=== PATIENT | male | born 1970 | race Caucasian/White ===

== ENCOUNTER 2018-03-23 15:38 | Observation (INO) ==
--- NOTE | 2018-03-23 16:14 | EKG Report ---
Test Performed on : 03/23/2018 3:48:55 PM Test Reason : chest pain Blood Pressure : / mmHG Vent. Rate : 100 BPM Atrial Rate : 100 BPM P-R Int : 132 ms QRS Dur : 086 ms QT Int : 314 ms P-R-T Axes : 075 084 244 degrees QTc Int : 405 ms Normal sinus rhythm. Anteroseptal infarct (cited on or before 03-JUL-2016) T wave abnormality, consider inferolateral ischemia Abnormal ECG When compared with ECG of 23-MAR-2018 15:41, (Unconfirmed) No significant change was found Unconfirmed Result
--- NOTE | 2018-03-23 16:14 | EKG Report ---
Test Performed on : 03/23/2018 3:39:14 PM Test Reason : cp Blood Pressure : / mmHG Vent. Rate : 091 BPM Atrial Rate : 091 BPM P-R Int : 126 ms QRS Dur : 094 ms QT Int : 330 ms P-R-T Axes : 074 084 248 degrees QTc Int : 405 ms Normal sinus rhythm. Anteroseptal infarct (cited on or before 03-JUL-2016) T wave abnormality, consider inferolateral ischemia ACUTE NC / STEMI Abnormal ECG When compared with ECG of 03-MAR-2018 12:30, (Unconfirmed) Right bundle branch block is no longer present Unconfirmed Result
--- NOTE | 2018-03-23 16:17 | Diag Imaging Result Doc PS360 ---
EXAM: CT HEAD W/O CONTRAST - 03/23/2018 HISTORY: left arm tingling TECHNIQUE: CT head without contrast COMPARISON: 12/29/2017 FINDINGS: There is encephalomalacia consistent with old infarct at the bilateral posterior parieto-occipital regions, as well as the right posterior temporal region, similar to prior. There is no indication of recent infarct, although acute infarcts may not be immediately visible. There is no evidence of intracranial hemorrhage, mass effect, or midline shift. There is no evidence of skull fracture. IMPRESSION: Old infarcts at bilateral posterior parietal-occipital regions, and at right posterior temporal region, similar to prior. No visible acute intracranial abnormality. This exam was performed using automated exposure control, adjustment of mA or kV according to patient size, and/or use of iterative reconstruction technique. Electronically signed by Festus Amador 03/23/2018 4:15 PM
[2018-03-23 16:20] LABS: BASO# 0.03 X1000 (0.0-0.2); BASO% 0.6 % (0.0-0.8); EOS% 1.9 % (0.0-10.0); HEMATOCRIT 45.2 % (42.0-52.0); HEMOGLOBIN 15.3 g/dL (14.0-18.0); IMM GRAN# 0.01 X1000 (0.0-0.04); IMM GRAN% 0.2 % (0.0-0.5); LYMPH# 1.06 X1000 (1.2-3.4); MCH 32.7 PG (27-31); MCHC 33.8 g/dL (33-37); MCV 96.6 FL (81-99); MONO# 0.43 X1000 (0.11-0.59); MONO% 8.1 % (1.7-9.3); MPV 10.1 FL (7.4-10.4); NEUT# 3.66 X1000 (1.4-6.5); NEUT% 69.2 % (42.2-75.2); PLT 233 X1000 (130-400); RBC 4.68 XMIL (4.7-6.1); RDW 13.5 % (11.5-14.5); WBC 5.29 X1000 (4.8-10.8)
[2018-03-23 16:22] LABS: INR 1.03
[2018-03-23 16:23] LABS: PTT 27.5 Seconds (22.3-41.8)
[2018-03-23 16:36] LABS: AGAP 10; ALBUMIN 4.5 g/dL (3.5-5.0); ALKALINE PHOSPHATASE 64 U/L (32-122); BUN 3 mg/dL (8-22); CALCIUM 9.8 mg/dL (8.8-10.2); CHLORIDE 103 mmol/L (98-107); CK PROFILE 79 U/L (24-204); COSMO 280; CREATININE 0.7 mg/dL (0.7-1.2); ESTIMATED GFR > 60; GLUCOSE 102 mg/dL (70-104); GOT 12 U/L (10-34); GPT 6 U/L (10-44); POTASSIUM 4.7 mmol/L (3.5-5.1); SODIUM 142 mmol/L (136-145); TCO2 30 mmol/L (25-35); TOTAL BILIRUBIN < 0.15 mg/dL (0.20-1.00); TOTAL PROTEIN 6.7 g/dL (6.3-8.3)
--- NOTE | 2018-03-23 17:02 | PROVIDER DOCUMENTATION ---
This chart was entered by Maria Cole Scribe, acting as scribe for Marian Urbano MD. HPI-Neurological Disorder - General Chief Complaint: Numbness Stated Complaint: NUMBNESS L ARM Time Seen by Provider: 03/23/18 15:48 Source: patient Allergies/Adverse Reactions: Patient Allergies Allergy/AdvReac Type Severity Reaction Status Date / Time No Known Allergies Allergy Verified 11/01/17 13:02 - History of Present Illness-Neuro Nature of Presenting Problem: Patient is a 48 year old male who presents to the ED via EMS with left arm numbness. Patient states numbness started this morning at 0400. Patient denies shortness of breath and chest pain. Patient does not report headache. Headache Location: reports: other (no headache reported) Severity: reports: mild Onset/Duration: reports: this morning (0400) Timing: reports: still present Context: reports: other (numbness) Character of Altered Mental Status: reports: N/A Any recent trauma/injury?: reports: none Character of Deficits: reports: altered sensation (numbness) New weakness or altered sensation location:: reports: LUE Cognitive Baseline: alert, oriented x3 Associated Symptoms: reports: denies symptoms Similar Symptoms Previously?: No Recently seen or treated by another doctor?: No Review of Systems - Adult - REVIEW OF SYSTEMS - ADULT Constitutional: reports: no symptoms reported Eyes: reports: no symptoms reported Ears, Nose, Mouth & Throat: reports: no symptoms reported Cardiovascular: reports: no symptoms reported Respiratory: reports: no symptoms reported Gastrointestinal: reports: no symptoms reported Genitourinary: reports: no symptoms reported Musculoskeletal: reports: no symptoms reported Integumentary: reports: no symptoms reported Neurological: reports: numbness (LUE). denies: dizziness/vertigo, headache/ migraines, seizure, syncope Psychiatric: reports: no symptoms reported Endocrine: reports: no symptoms reported Hematologic/Lymphatic: reports: no symptoms reported Allergic/Immunologic: reports: no symptoms reported All Other Systems: Reviewed and Negative Past History - Adult - PAST MEDICAL HISTORY-ADULT Review of Records: reports: Nursing Assessment Review, Medications Reviewed, Social history reviewed & non-contributory. Major Childhood Illnesses: reports: denies history Cardiovascular: reports: blood clots (knee), CAD, HTN, hyperlipidemia, CT Respiratory: reports: COPD Gastrointestinal: reports: denies history Obstetrical/Gynecological: reports: denies history Genitourinary: reports: denies history Musculoskeletal: reports: denies history Neurological: reports: CVA, stroke deficits (speech and vision), Seizures/ Epilepsy Endocrine/Immune: reports: denies history Other Conditions: reports: denies history, other (DVT) - PRIOR SURGERIES/PROCEDURES Surgical/Procedure History: reports: cardiac stent, orthopedic (extremity) (R knee, L foot), other (stents in knee) - IMMUNIZATION STATUS Childhood Immunizations: See Nurse Assessment Flu Vaccine: See Nurse Assessment - FAMILY HISTORY Family History: reviewed, not pertinent - SOCIAL HISTORY Smoking: cigarettes, greater than 1 pack/day Provider spent 3-5 mins advising pt. on dangers of tobacco.: Discussed manners to quit use, and f/u contacts for add'l counseling. 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2 MCV 96.6 MCH 32.7 H MCHC 33.8 RDW Std Deviation 13.5 Plt Count 233 MPV 10.1 Immature Gran % (Auto) 0.2 Neut % (Auto) 69.2 Lymph % (Auto) 20.0 L [place] % (Auto) 8.1 Eos % (Auto) 1.9 Baso % (Auto) 0.6 Immature Gran # (Auto) 0.01 Neut # (Auto) 3.66 Lymph # (Auto) 1.06 L [place] # (Auto) 0.43 Eos # (Auto) 0.10 Baso # (Auto) 0.03 PT INR PTT (Actin FS) Sodium 142 Potassium 4.7 Chloride 103 Carbon Dioxide 30 Anion Gap 10 BUN 3 L Creatinine 0.7 Estimated GFR/1.73 m2 > 60 BUN/Creatinine Ratio 4 Glucose 102 Calculated Osmolality 280 Calcium 9.8 Total Bilirubin < 0.15 L AST 12 ALT 6 L Alkaline Phosphatase 64 Creatine Kinase 79 Troponin T Wxl-R-Omhlezjxavc Pept 265 H Total Protein 6.7 Albumin 4.5 Globulin 2.0 Albumin/Globulin Ratio 2.0 03/23/18 03/23/18 15:56 15:56 WBC RBC Hgb Hct MCV MCH MCHC RDW Std Deviation Plt Count MPV Immature Gran % (Auto) Neut % (Auto) Lymph % (Auto) [place] % (Auto) Eos % (Auto) Baso % (Auto) Immature Gran # (Auto) Neut # (Auto) Lymph # (Auto) [place] # (Auto) Eos # (Auto) Baso # (Auto) PT 14.0 INR 1.03 PTT (Actin FS) 27.5 Sodium Potassium Chloride Carbon Dioxide Anion Gap BUN Creatinine Estimated GFR/1.73 m2 BUN/Creatinine Ratio Glucose Calculated Osmolality Calcium Total Bilirubin AST ALT Alkaline Phosphatase Creatine Kinase Troponin T < 0.010 [place]-G-Jglczaqazct Pept Total Protein Albumin Globulin Albumin/Globulin Ratio Orders Category Date Time Status Cardiac Monitoring DIRECTED Care 03/23/18 16:04 Active Saline Loc NOW Care 03/23/18 16:[address] HEAD W/O CONTRAST [CT] Stat Exams 03/23/18 15:48 Completed ALCOHOL BLOOD Stat Lab 03/23/18 17:25 Uncollected CBC WITH ELECTRONIC DIFF [HEME] Stat Lab 03/23/18 15:56 Completed CK PROFILE [SP CHEM] Stat Lab 03/23/18 15:56 Completed COMPREHENSIVE METABOLIC PANEL [CHEM] Stat Lab 03/23/18 15:56 Completed PRO B-NATRIURETIC PEPTIDE Stat Lab 03/23/18 15:56 Completed PROTIME WITH INR [COAG] Stat Lab 03/23/18 15:56 Completed PTT [COAG] Stat Lab 03/23/18 15:56 Completed TROPONIN T Stat Lab 03/23/18 15:56 Completed Hydrocodone/APAP 5 mg/325 mg [[place]-5] Med 03/23/18 17:13 Discontinued 1 each PO NOW ONE CP/SOB/Palp >45 yrs of Age Stat Oth 03/23/18 16:04 Ordered EKG [EKG] Stat Ther 03/23/18 16:04 Draft EKG [EKG] Stat Ther 03/23/18 16:05 Draft Result Diagrams: 03/23/18 15:56 03/23/18 15:56 - EKG 1 Time of EKG reading by physician:: 15:39 EKG Read and Signed by:: Marian Urbano EKG Interpretation (*Must complete 3 of following elements*): Abnormal (T wave abnormality, consider inferolateral ischemia; ACUTE CT / STEMI) Rate: 91 Rhythm: normal sinus rhythm Comments: anteroseptal infarct, possibly acute; 2 Time of EKG reading by physician:: 15:41 EKG Read and Signed by:: Marian Urbano EKG Interpretation (*Must complete 3 of following elements*): Abnormal (ST & T wave abnormality, consider inferolateral ischemia) Rate: 88 Rhythm: normal sinus rhythm Comments: anterolateral infarct, age undetermined; - CT/MRI 1 CT Study: Head Impression: See EMR Report (EXAM: CT HEAD W/O CONTRAST - 03/23/2018 HISTORY: left arm tingling TECHNIQUE: CT head without contrast COMPARISON: 2017 FINDINGS: There is encephalomalacia consistent with old infarct at the bilateral posterior parieto-occipital regions, as well as the right posterior temporal region, similar to prior. There is no indication of recent infarct, although acute infarcts may not be immediately visible. There is no evidence of intracranial hemorrhage, mass effect, or midline shift. There is no evidence of skull fracture. IMPRESSION: Old infarcts at bilateral posterior parietal- occipital regions, and at right posterior temporal region, similar to prior. No visible acute intracranial abnormality. This exam was performed using automated exposure control, adjustment of mA or kV according to patient size, and/or use of iterative reconstruction technique. Electronically signed by Festus Amador 03/23/2018 4:15 PM 03/23/18 0188 Interpreting Physician: Festus Amador MD Dictated Date/Time: 03/23/18 4547 cc: Marian Urbano MD;) - CONSULTS/PCP/HOSPITALIST Notification #1 *Consult/PCP/Hospitalist*: Dr. Reyes Time Discussed: 16:03 Reason/Comments: Dr. Urbano consulted with Dr. Reyes about patient. Consult Disposition: other (Dr. Reyes states put the EKG in the system so he can view it.) #2 Consult: Dr. Reyes Time Discussed: 16:20 Reason/Comments: Dr. Urbano consulted with Dr. Reyes about patient. Consult Disposition: other (Dr. Reyes states today's EKG looks like patient's EKG in November.) #3 Consult: Dr. Hernandez Time Discussed: 17:28 Reason/Comments: Dr. Urbano consulted with Dr. Hernandez about patient Consult Disposition: Will see in ED, Admit Departure - Departure Date of Disposition Decision: 03/23/18 Time of Disposition Decision: 17:28 DIAGNOSIS: Acute electrocardiogram changes, Arm paresthesia, left Disposition: ADMITTED INPATIENT 09 Certified Medical Emergency: Emergent Condition: Fair - Critical Care Note This patient required my direct & personal management of CC.: No Attestation - Physician/ REI Attestation The physician spent face to face time with patient:: Yes Advanced Practice Provider documentation review:: Supervising physician onsite and consulted in the evaluation and care of this patient. The physician did have a face to face encounter with the patient. This chart was documented by the indicated scribe, (Maria Cole Scribe) and accurately reflects the services I performed and decisions made by me, Marian Urbano MD, as attested by the provider's signature.
[2018-03-23] MEDS ORDERED: NORCO-5 PO ONE (17:13)
[2018-03-23] MEDS ORDERED: ZOFRAN IV PRN (18:32)
[2018-03-23] MEDS ORDERED: TYLENOL PO PRN (18:32)
[2018-03-23] MEDS: NICODERM PATCH TD PRN (19:48)
--- NOTE | 2018-03-24 00:57 | HISTORY AND PHYSICAL ---
CHIEF COMPLAINT: Left arm numbness. HISTORY OF PRESENT ILLNESS: This is a 48-year-old gentleman with a history of CVA, with residual left-sided weakness and numbness, hypertension, COPD, with ongoing tobacco use. He presents to the emergency room complaining of left arm numbness that he states started about 3 a.m. He denies any shortness of breath, chest pain, palpitations, headache, or any other accompanying symptoms. He states that the numbness is just "a little bit worse than normal." He has good PMS to hand and fingers. CT of the head was performed, which revealed old infarcts in bilateral posterior parietal occipital regions, and right posterior temporal region, similar to prior. No additional acute intracranial abnormality. PAST MEDICAL HISTORY: Hypertension, dyslipidemia, history of blood clots, CAD, status post ID, COPD with continued tobacco use, history of seizures. PAST SURGICAL HISTORY: Right knee and left foot surgery, stents to bilateral lower extremities, although he is unclear to positions. SOCIAL HISTORY: He smokes 1-1/2 to 2 packs a day. He denies illicit drug use. He states that he does have a history of alcohol use. ALLERGIES: No known drug allergies. HOME MEDICATIONS: A list will be obtained by the nursing staff and once verified, we will review and continue as appropriate. REVIEW OF SYSTEMS: Discussed with the patient, with pertinent positives stated in the HPI. He denies any headache, any syncope, dizziness, any shortness of breath, cough, fever, chills, chest pain, palpitations, any nausea, vomiting, diarrhea, constipation, black or bloody vomitus or stools, hematuria, dysuria, frequency, or urgency. PHYSICAL EXAMINATION: GENERAL: This is a 48-year-old gentleman who is sitting up on the bedside in the ER, in no distress. VITAL SIGNS: Blood pressure is 174/99, with heart rate of 100, respirations of 20. Temperature is 98.2, with oxygen saturation 96-99% on room air. HEENT: Head is normocephalic, atraumatic. Mucous membranes are moist. NECK: Supple. Trachea midline. CARDIOVASCULAR: Regular rate and rhythm. S1, S2 appreciated. PULMONARY: Breath sounds are clear. CHEST: Rises and falls symmetrically with respiration. Chest wall is nontender to palpation. GASTROINTESTINAL: Soft, nontender, nondistended, with bowel sounds in all 4 quadrants. NEUROLOGIC: He is alert and oriented. He does have slurred speech, which he is residual from a prior CVA. He does follow commands. He has 5/5 motor strength to the right upper and lower, and 3/5 to 4/5 in the left upper and lower extremities. He has no pronator drift, no facial droop. Forehead is spared. He has no tongue or uvula deviation. LABS: WBC is 5.2, with hemoglobin 15.3, hematocrit 35.2, and platelets 237,000. Sodium is 142, potassium 4.7, BUN 3, creatinine 0.7, with a glucose of 102. CT of the head reveals old infarcts in bilateral posterior parietal occipital regions, and right posterior temporal region, similar to prior. No visible acute intracranial abnormality. ASSESSMENT: 1. Left arm numbness. 2. Hypertension. 3. Chronic obstructive pulmonary disease. 4. Coronary artery disease, status post stents. 5. Peripheral vascular disease, status post lower extremity stents. 6. Prior cerebrovascular accident, with left-sided weakness and slurred speech. PLAN: The patient will be admitted to the medical/surgical floor. He will be placed on telemetry, with neuro checks every 4 hours. We will identify his home medications, and will continue these as are appropriate. We will repeat a CBC and CMP in the morning. We will check a blood alcohol, give a nicotine patch. Further treatments pending hospital course. Dictated by GREGG Shelton for Sam Santos MD This chart was documented by, GREGG Shelton and accurately reflects the services performed, treatment plan and medical decisions as attested by the providers signature Sam Santos MD. cc: GREGG Shelton MD
--- NOTE | 2018-03-24 06:29 | EKG Report ---
Test Performed on : 03/24/2018 06:17:56 AM Test Reason : pain Blood Pressure : / mmHG Vent. Rate : 084 BPM Atrial Rate : 084 BPM P-R Int : 134 ms QRS Dur : 084 ms QT Int : 354 ms P-R-T Axes : 074 088 243 degrees QTc Int : 418 ms Normal sinus rhythm. Anterolateral infarct (cited on or before 03-JUL-2016) T wave abnormality, consider inferior ischemia Abnormal ECG When compared with ECG of 23-MAR-2018 15:48, (Unconfirmed) Questionable change in initial forces of Lateral leads Unconfirmed Result
[2018-03-24 06:59] LABS: HEMATOCRIT 44.7 % (42.0-52.0); HEMOGLOBIN 14.9 g/dL (14.0-18.0); MCH 31.9 PG (27-31); MCHC 33.3 g/dL (33-37); MCV 95.7 FL (81-99); MPV 9.9 FL (7.4-10.4); RBC 4.67 XMIL (4.7-6.1); RDW 13.6 % (11.5-14.5)
[2018-03-24] MEDS ORDERED: PRILOSEC PO SCH (07:00)
[2018-03-24 07:29] LABS: AGAP 9; ALBUMIN 3.6 g/dL (3.5-5.0); ALKALINE PHOSPHATASE 60 U/L (32-122); BUN 9 mg/dL (8-22); CALCIUM 9.5 mg/dL (8.8-10.2); CHLORIDE 105 mmol/L (98-107); COSMO 282; CREATININE 0.6 mg/dL (0.7-1.2); ESTIMATED GFR > 60; GLUCOSE 96 mg/dL (70-104); GOT 12 U/L (10-34); GPT 5 U/L (10-44); SODIUM 142 mmol/L (136-145); TCO2 28 mmol/L (25-35); TOTAL PROTEIN 6.3 g/dL (6.3-8.3)
[2018-03-24] MEDS: NICODERM PATCH TD PRN (10:17)
[2018-03-24 14:00] VITALS: BP 159/81
--- NOTE | 2018-03-24 15:16 | Diag Imaging Result Doc PS360 ---
EXAM: MRI BRAIN W/WO CONTRAST HISTORY: stroke suspected TECHNIQUE: MRI brain with and without contrast. Axial, sagittal, and coronal images obtained in multiple sequences. These are followed the post contrasted axial and coronal images. COMPARISON: CT from 03/23/2018 FINDINGS: No recent infarct. There are multiple old cerebellar and occipital infarcts no hydrocephalus. No mass or midline shift. No enhancing lesion on the post contrasted images. No epidural or subdural fluid collection. Normal orbits. No sinus opacification. IMPRESSION: Old occipital and cerebellar infarcts, but no acute infarct. Electronically signed by Pb Dove 03/24/2018 3:14 PM
--- NOTE | 2018-03-25 08:41 | DISCHARGE SUMMARY ---
ADMISSION DATE: 03/23/2018 DISCHARGE DATE: 03/24/2018 DIAGNOSES: 1. Left arm numbness. The patient states it is back to his normal state. 2. Hypertension. 3. Chronic obstructive pulmonary disease. 4. Coronary artery disease status post stent. 5. Peripheral vascular disease, status post lower extremity stents. 6. Prior cerebrovascular accident with left-sided weakness and slurred speech. DIAGNOSTICS: CT of the head revealed old infarcts at bilateral posterior parietal-occipital regions and a right posterior temporal region similar to prior. No visible acute abnormality. MRI of the brain with and without contrast revealed old occipital and cerebellar infarcts, but no acute infarct. HOSPITAL COURSE: Mr. Cardoza presented to the emergency room via EMS complaining of numbness to his left arm. He stated, "it's just a little bit worse than normal." He has had a prior CVA with left-sided weakness to his left arm and left leg with also some decreased sensation to his left arm. CT revealed old infarcts, but nothing acute. Today, he states he is back to his normal state. He has no complaints. MRI was performed, which revealed old occipital and cerebellar infarcts, but no acute infarct. Thankfully, he is ready to be discharged, and the patient is very anxious to be discharged. PHYSICAL EXAMINATION: Discharge vital signs: Blood pressure is 159/81 with a heart rate of 74, respirations 18, temperature is 98.7 degrees oral, with room air saturations of 95%. Eyes: Pupils are equal, round, react to light. EOMs are intact. Sclerae are anicteric. HENT: Head is normocephalic, atraumatic. Mucous membranes are moist. Neck: Supple with trachea midline. Cardiovascular: Regular rate and rhythm. S1 and S2 appreciated. Pulmonary: Breath sounds are clear with no increased work of breathing noted. Neurologic: He is alert and oriented x3. He does have some left-sided weakness with 3 to 4/5 strength in the left upper and lower extremities and 5/5 to the right. He has no pronator drift. No facial droop. Forehead is spared. No tongue or uvula deviation. DISCHARGE MEDICATIONS: Trazodone 150 mg p.o. at bedtime, gabapentin 300 mg p.o. t.i.d., levetiracetam 500 mg p.o. b.i.d., and lorazepam 0.5 p.o. daily. The patient was given no prescriptions at this visit. FOLLOWUP: 1. He has been encouraged to follow up with his primary care physician in the next 1-2 weeks, sooner if needed. 2. He has been given a list of providers that he can select a PMD and make an appointment. 3. He has been instructed to return to the ER for any syncope, dizziness, any chest pain, palpitations, any change in sensation or motor function of any of the 4 extremities or for any questions or concerns that he may have. He is being discharged home in stable condition with family members. TIME SPENT: This is a greater than 30-minute discharge. Dictated by GREGG Shelton for Sam Santos MD This chart was documented by, GREGG Shelton and accurately reflects the services performed, treatment plan and medical decisions as attested by the providers signature Sam Santos MD. cc: GREGG Shelton MD
== END 2018-03-24 18:09 | disposition home or self-care (01) ==
LOC: P.MEDSURG 15:38 → P.ED 15:38
PROVIDERS: ATTEND Internal Medicine
CPT/HCPCS: 70450; 70553; 80053; 80307; 80320; 82055; 82550; 83880; 84484; 85025; 85027; 85610; 85730; 93005; 99285; A9270; A9579; G0480; G6040

== ENCOUNTER 2018-10-18 14:52 | Inpatient (IN) ==
[2018-10-18] MEDS ORDERED: ASPIRIN PO ONE (14:57)
[2018-10-18] MEDS ORDERED: MORPHINE IV ONE (15:08)
[2018-10-18] MEDS ORDERED: ZOFRAN IV ONE (15:09)
[2018-10-18] MEDS ORDERED: SOLU-MEDROL IV ONE (15:09)
[2018-10-18] MEDS ORDERED: PULMICORT INH ONE (15:10)
[2018-10-18] MEDS ORDERED: DUONEB (A & A) INH ONE (15:11)
--- NOTE | 2018-10-18 15:47 | PROVIDER DOCUMENTATION ---
HPI-Respiratory General - General Chief Complaint: Shortness of Breath Stated Complaint: SOB Time Seen by Provider: 10/18/18 15:05 Allergies/Adverse Reactions: Patient Allergies Allergy/AdvReac Type Severity Reaction Status Date / Time No Known Allergies Allergy Verified 04/06/18 15:00 Home Medications: Home Medication List Medication Instructions Recorded Confirmed Last Taken Type ENALApril [Vasotec] 5 mg PO DAILY #30 tab 06/22/18 10/18/18 Unknown Rx Gabapentin [Neurontin] 100 mg PO TID #90 cap 06/22/18 10/18/18 Unknown Rx - History of Present Illness-Resp Nature of Presenting Problem: patient with history of COPD presented with worsening shortness of breath, patient was still smoking. appeared with laboring breathing. no fever was reported. patient denied fever. Quality of Pain: reports: tightness Severity in ED: reports: moderate Onset/Duration: reports: gradual Timing: reports: still present Cough Quality/Degree: reports: moderate Current Respiratory Medication Therapy: Initiated A/A nebulizer, Initiated albuterol Modifying Factors: improves with: exertion, coughing Associated Symptoms: reports: cough, hyperventilating, short of breath, wheezing Similar Symptoms Previously?: Yes Review of Systems - Adult - REVIEW OF SYSTEMS - ADULT Constitutional: denies: fever, fatique Eyes: reports: no symptoms reported Ears, Nose, Mouth & Throat: reports: no symptoms reported Cardiovascular: reports: no symptoms reported Respiratory: reports: cough, shortness of breath, wheezing Gastrointestinal: reports: no symptoms reported Genitourinary: reports: no symptoms reported Musculoskeletal: reports: no symptoms reported Integumentary: reports: no symptoms reported Neurological: reports: no symptoms reported Psychiatric: reports: no symptoms reported Endocrine: reports: no symptoms reported Hematologic/Lymphatic: reports: no symptoms reported Allergic/Immunologic: reports: no symptoms reported Past History - Adult - PAST MEDICAL HISTORY-ADULT Review of Records: reports: Nursing Assessment Review Major Childhood Illnesses: reports: denies history Cardiovascular: reports: blood clots (knee), CAD, HTN, hyperlipidemia, [place] Respiratory: reports: COPD Gastrointestinal: reports: denies history Obstetrical/Gynecological: reports: denies history Genitourinary: reports: denies history Musculoskeletal: reports: denies history Neurological: reports: CVA, stroke deficits (speech and vision), Seizures/Epilepsy Endocrine/Immune: reports: denies history Other Conditions: reports: denies history, other (DVT) - PRIOR SURGERIES/PROCEDURES Surgical/Procedure History: reports: cardiac stent, orthopedic (extremity) (R knee, L foot), other (stents in knee) - IMMUNIZATION STATUS Childhood Immunizations: See Nurse Assessment Flu Vaccine: See Nurse Assessment - FAMILY HISTORY Family History: reviewed, not pertinent Physical Exam-General - PHYSICAL EXAM-ADULT Initial Vital Signs Reviewed: Yes - CONSTITUTIONAL General Appearance: alert, moderate distress - EYES Eyes: PERRL/EOMI - HEAD, EARS, NOSE, MOUTH & THROAT HENMT: normocephalic/atraumatic - NECK Neck: non-tender, supple - RESPIRATORY Respiratory: respiratory distress, wheezing, increased rate - CARDIOVASCULAR Cardiovascular: no edema, no gallop, no murmur, tachycardia - GASTROINTESTINAL (ABDOMEN) Abdominal Exam: non tender, soft, no organomegaly, no pulsatile mass - MUSCULOSKELETAL Back Exam: normal inspection, no CVA tenderness, no vertebral tenderness Extremity: normal range of motion, non-tender, normal gait, normal inspection, no pedal edema, no calf tenderness - SKIN Integumentary: normal turgor, warm/dry - NEUROLOGIC Neurologic: grocery specialist II-XII nml as tested, grossly normal, no motor/sensory deficits - PSYCHIATRIC Psych/Mental Status: normal mood/affect - HEART Score HEART Score: History: Slightly Suspicious HEART Score: ECG: Non-Specific Repolarization Disturbance/LBBB/PM HEART Score: Age: 45-65 Years HEART Score: Risk Factors for Atherosclerotic Disease: 1 or 2 Risk Factors HEART Score: Troponin: < or = Normal Limit Total HEART Score:: 3 Progress - PLAN OF CARE/RESULTS Progress/Plan/Lab Results: Vital Signs - 8 hr 10/18/18 14:47 10/18/18 14:55 Temperature 98.8 F Pulse Rate 108 H 102 H Respiratory Rate 24 22 Blood Pressure 179/105 O2 Sat by Pulse Oximetry 96 95 Laboratory Results - last 24 hr 10/18/18 10/18/18 10/18/18 16:10 16:10 16:10 WBC 7.30 RBC 4.31 L Hgb 12.1 L Hct 37.1 L MCV 86.1 MCH 28.1 MCHC 32.6 L RDW Std Deviation 14.5 Plt Count 285 MPV 9.6 Immature Gran % (Auto) 0.1 Neut % (Auto) 74.8 Lymph % (Auto) 12.3 L [place] % (Auto) 11.2 H Eos % (Auto) 1.1 Baso % (Auto) 0.5 Immature Gran # (Auto) 0.01 Neut # (Auto) 5.45 Lymph # (Auto) 0.90 L [place] # (Auto) 0.82 H Eos # (Auto) 0.08 Baso # (Auto) 0.04 PT INR PTT (Actin FS) Specimen Type Sample Site pH pCO2 pO2 HCO3 Base Excess Oxyhemoglobin ABG O2 Sat (Calculated) ABG O2 Saturation ABG Carboxyhemoglobin ABG Methemoglobin Ed Test A-a O2 Difference Total Hemoglobin Lactate Liter Flow Blood Gas Modality FiO2 % Sodium 135 L Potassium 3.9 Chloride 95 L Carbon Dioxide 31 Anion Gap 8 BUN 3 L Creatinine 0.5 L Estimated GFR/1.73 m2 > 60 BUN/Creatinine Ratio 6 Glucose 108 H Calculated Osmolality 267 Calcium 8.7 L Total Bilirubin 0.20 AST 19 ALT 12 Alkaline Phosphatase 77 Creatine Kinase 313 H Creatine Kinase Index 2.8 H CK-MB (CK-2) 8.61 H Troponin T [id number]-Bnyuwgbboye Pept 1391 H Total Protein 6.0 L Albumin 3.9 Globulin 2.0 Albumin/Globulin Ratio 2.0 10/18/18 10/18/18 10/18/18 16:10 16:10 17:20 WBC RBC Hgb Hct MCV MCH MCHC RDW Std Deviation Plt Count MPV Immature Gran % (Auto) Neut % (Auto) Lymph % (Auto) [place] % (Auto) Eos % (Auto) Baso % (Auto) Immature Gran # (Auto) Neut # (Auto) Lymph # (Auto) [place] # (Auto) Eos # (Auto) Baso # (Auto) PT 14.4 INR 1.07 PTT (Actin FS) 28.5 Specimen Type ARTERIAL Sample Site R RADIAL pH 7.34 L pCO2 60 H* pO2 47 L* HCO3 28.4 H Base Excess 5.0 H Oxyhemoglobin 78.7 L* ABG O2 Sat (Calculated) 14.1 L ABG O2 Saturation 87.6 L ABG Carboxyhemoglobin 9.70 H* ABG Methemoglobin 0.4 Ed Test YES A-a O2 Difference 78.0 Total Hemoglobin 12.8 Lactate 0.80 Liter Flow 2.0 Blood Gas Modality CANNULA FiO2 % 28.0 Sodium Potassium Chloride Carbon Dioxide Anion Gap BUN Creatinine Estimated GFR/1.73 m2 BUN/Creatinine Ratio Glucose Calculated Osmolality Calcium Total Bilirubin AST ALT Alkaline Phosphatase Creatine Kinase Creatine Kinase Index CK-MB (CK-2) Troponin T < 0.010 Ddr-R-Rnncvrjshia Pept Total Protein Albumin Globulin Albumin/Globulin Ratio Orders Category Date Time Status Admit - [facility] Routine AdmDCTranf 10/18/18 17:56 Active Activity - Up with Assistance ORDERED Care 10/18/18 17:56 Active Cardiac Monitoring DIRECTED Care 10/18/18 14:57 Active DVT/PE Risk Assess/Protocol [QM] ORDERED Care 10/18/18 17:56 Active Intake and Output-Strict ORDERED Care 10/18/18 17:56 Active Oxygen Therapy- ED Nursing DIRECTED Care 10/18/18 14:57 Active Saline Loc DIRECTED Care 10/18/18 17:56 Active Saline Loc NOW Care 10/18/18 14:57 Active Turn, Cough and Deep Breathe Q4HR.AWAKE Care 10/18/18 17:56 Active Vital Signs Order Q 8-HR ASSESS Care 10/18/18 17:56 Active Z-Document. for Tele Applied ORDERED Care 10/18/18 17:57 Active Regular Diet Diet 10/18/18 17:57 Active CHEST-2 VIEWS [RAD] Stat Exams 10/18/18 15:36 Completed ABG [RESP] Routine Lab 10/18/18 17:20 Completed BLOOD CULTURE [BLDCUL] Stat Lab 10/18/18 16:31 Results CBC WITH ELECTRONIC DIFF [HEME] Stat Lab 10/18/18 16:10 Completed CBC WITH NO DIFF [HEME] Routine Lab 10/19/18 05:00 Ordered CK PROFILE [SP CHEM] Stat Lab 10/18/18 16:10 Completed COMPREHENSIVE METABOLIC PANEL [CHEM] Routine Lab 10/19/18 05:00 Ordered COMPREHENSIVE METABOLIC PANEL [CHEM] Stat Lab 10/18/18 16:10 Completed LACTATE, PLASMA [CHEM] Stat Lab 10/18/18 16:38 Ordered MAGNESIUM [CHEM] Routine Lab 10/19/18 05:00 Ordered PRO B-NATRIURETIC PEPTIDE Stat Lab 10/18/18 16:10 Completed PROTIME WITH INR [COAG] Stat Lab 10/18/18 16:10 Completed PTT [COAG] Stat Lab 10/18/18 16:10 Completed SPUTUM CULTURE WITH GRAM STAIN [RM] Routine Lab 10/18/18 17:57 Uncollected TROPONIN T Stat Lab 10/18/18 16:10 Completed TSH Routine Lab 10/19/18 05:00 Ordered Acetaminophen [Tylenol] Med 10/18/18 17:58 Active 650 mg PO Q6H PRN PRN Albuterol 2.5MG/Ipratrop 0.5MG [Duoneb (A & A)] Med 10/18/18 15:11 Discontinued 3 ml INH NOW ONE Albuterol 2.5MG/Ipratrop 0.5MG [Duoneb (A & A)] Med 10/18/18 17:58 Active 3 ml INH Q2H PRN PRN Albuterol 2.5MG/Ipratrop 0.5MG [Duoneb (A & A)] Med 10/18/18 19:30 Active 3 ml INH RTQ4H Aspirin Med 10/18/18 14:57 Discontinued 325 mg PO NOW ONE Budesonide [Pulmicort] Med 10/18/18 15:10 Discontinued 0.5 mg INH NOW ONE ENALApril [Vasotec] Med 10/19/18 09:00 Active 5 mg PO DAILY Gabapentin [Neurontin] Med 10/19/18 09:00 Active 100 mg PO TID Hydralazine [Apresoline] Med 10/18/18 18:01 Active 10 mg IV Q4H PRN PRN Levofloxacin 500 mg/D5w [Levaquin 500 mg/D5w] Med 10/18/18 18:00 Active 500 mg in 100 ml IV Q24H Methylprednisolone Sod Succ [Solu-Medrol] Med 10/18/18 15:09 Discontinued 125 mg IV NOW ONE Methylprednisolone Sod Succ [Solu-Medrol] Med 10/18/18 23:00 Active 60 mg IV Q8H Morphine Med 10/18/18 15:08 Discontinued 4 mg IV NOW ONE Ondansetron [Zofran] Med 10/18/18 15:09 Discontinued 4 mg IV NOW ONE Ondansetron [Zofran] Med 10/18/18 17:58 Active 4 mg IV Q4-6H PRN PRN Aerosol Treatments Routine Oth 10/18/18 15:10 Completed Aerosol Treatments Routine Oth 10/18/18 15:11 Completed Aerosol Treatments Routine Oth 10/18/18 17:58 Active Aerosol Treatments Stat Oth 10/18/18 15:10 Completed Aerosol Treatments Stat Ot 10/18/18 15:11 Completed Aerosol Treatments Stat Ot 10/18/18 17:58 Active CP/SOB/Palp >45 yrs of Age Stat Ot 10/18/18 14:57 Ordered Incentive Spirometer Q4HR.AWAKE Ot 10/18/18 21:00 Ordered Incentive Spirometer Q4HR.AWAKE Ot 10/19/18 01:00 Ordered Incentive Spirometer Q4HR.AWAKE Ot 10/19/18 05:00 Ordered Incentive Spirometer Q4HR.AWAKE Ot 10/19/18 09:00 Ordered Incentive Spirometer Q4HR.AWAKE Ot 10/19/18 13:00 Ordered Incentive Spirometer Q4HR.AWAKE Ot 10/19/18 17:00 Ordered Oxygen Device Routine Ot 10/18/18 17:56 Active Peak Flow BID Ot 10/18/18 21:00 Ordered Peak Flow BID Ot 10/19/18 09:00 Ordered Telemetry [OM.EQ] Routine Ot 10/18/18 17:56 Active EKG [EKG] Stat Ther 10/18/18 14:57 Draft Transfer/Admit Order [TRANSFER] Routine Transfer 10/18/18 17:59 Ordered Result Diagrams: 10/18/18 16:10 10/18/18 16:10 Departure - Departure Date of Disposition Decision: 10/18/18 Time of Disposition Decision: 17:38 DIAGNOSIS: COPD exacerbation Disposition: ADMITTED INPATIENT 09 Certified Medical Emergency: Emergent Condition: Good Referrals and Follow-Ups: None,PCP [Primary Care Provider] - - Critical Care Note This patient required my direct & personal management of CC.: No Attestation - Physician/ REI Attestation Patient care was provided by Advanced Practice Provider:: No The physician spent face to face time with patient:: Yes Advanced Practice Provider documentation review:: Supervising physician onsite and consulted in the evaluation and care of this patient. The physician did have a face to face encounter with the patient.
--- NOTE | 2018-10-18 15:49 | Diag Imaging Result Doc PS360 ---
EXAM: CHEST-2 VIEWS HISTORY: shortness of breath TECHNIQUE: Chest two views COMPARISON: 08/17/2018 FINDINGS: The lungs are hyperexpanded. The heart is not enlarged. The vessels are small. There are no infiltrates. No pleural effusions. IMPRESSION: Emphysema. No change. Electronically signed by Pb Dove 10/18/2018 3:46 PM
[2018-10-18 16:26] LABS: BASO# 0.04 X1000 (0.0-0.2); BASO% 0.5 % (0.0-0.8); EOS# 0.08 X1000 (0.0-0.7); EOS% 1.1 % (0.0-10.0); HEMATOCRIT 37.1 % (42.0-52.0); HEMOGLOBIN 12.1 g/dL (14.0-18.0); IMM GRAN# 0.01 X1000 (0.0-0.04); IMM GRAN% 0.1 % (0.0-0.5); LYMPH% 12.3 % (20.5-51.1); MCH 28.1 PG (27-31); MCHC 32.6 g/dL (33-37); MCV 86.1 FL (81-99); MONO# 0.82 X1000 (0.11-0.59); MONO% 11.2 % (1.7-9.3); MPV 9.6 FL (7.4-10.4); NEUT# 5.45 X1000 (1.4-6.5); NEUT% 74.8 % (42.2-75.2); PLT 285 X1000 (130-400); RBC 4.31 XMIL (4.7-6.1); RDW 14.5 % (11.5-14.5)
[2018-10-18 16:32] LABS: INR 1.07; PROTIME 14.4 Seconds (11.0-16.0)
[2018-10-18 16:33] LABS: PTT 28.5 Seconds (22.3-41.8)
[2018-10-18 16:49] LABS: AGAP 8; ALBUMIN 3.9 g/dL (3.5-5.0); ALKALINE PHOSPHATASE 77 U/L (32-122); BUN 3 mg/dL (8-22); CALCIUM 8.7 mg/dL (8.8-10.2); CHLORIDE 95 mmol/L (98-107); COSMO 267; CREATININE 0.5 mg/dL (0.7-1.2); ESTIMATED GFR > 60; GLUCOSE 108 mg/dL (70-104); GOT 19 U/L (10-34); GPT 12 U/L (10-44); POTASSIUM 3.9 mmol/L (3.5-5.1); SODIUM 135 mmol/L (136-145); TCO2 31 mmol/L (25-35)
[2018-10-18 16:52] LABS: CK PROFILE 313 U/L (24-204)
[2018-10-18 17:06] LABS: CK INDEX 2.8 (0.0-2.5); CK-MB 8.61 ng/mL (0.0-5.0)
--- NOTE | 2018-10-18 17:27 | ED EKG INTERP ---
This chart was entered by Ezra Wright Scribe, acting as scribe for Marian Urbano MD. EKG Interpretation - EKG Time of EKG reading by physician:: 15:10 EKG Read and Signed by:: Marian Urbano EKG Interpretation (*Must complete 3 of following elements*): Abnormal (Sinus tachycardia; Possible left atrial enlargement; Possible inferior infarct, age undetermined; Cannot rule out anterior infarct, age undetermined) Rate: 104 Rhythm: Sinus tachycardia [place]: left QRS: normal MT Interval: normal ST Wave: normal Attestation - Physician/ REI Attestation Patient care was provided by Advanced Practice Provider:: No The physician spent face to face time with patient:: Yes Advanced Practice Provider documentation review:: Supervising physician onsite and consulted in the evaluation and care of this patient. The physician did have a face to face encounter with the patient. This chart was documented by the indicated scribe, (Ezra Wright Scribe) and accurately reflects the services I performed and decisions made by la, Marian Urbano MD, as attested by the provider's signature.
--- NOTE | 2018-10-18 17:29 | EKG Report ---
Test Performed on : 10/18/2018 3:07:21 PM Test Reason : SOB Blood Pressure : / mmHG Vent. Rate : 104 BPM Atrial Rate : 104 BPM P-R Int : 124 ms QRS Dur : 090 ms QT Int : 336 ms P-R-T Axes : 075 061 099 degrees QTc Int : 441 ms Sinus tachycardia. Possible Left atrial enlargement Possible Inferior infarct (cited on or before 04-AUG-2018) Cannot rule out Anterior infarct (cited on or before 03-JUL-2016) Abnormal ECG When compared with ECG of 17-AUG-2018 13:18, premature ventricular complexes. are no longer present Right bundle branch block is no longer present Questionable change in initial forces of Anteroseptal leads Unconfirmed Result
[2018-10-18 17:40] LABS: BLOOD TYPE ARTERIAL; HCO3-(ACT) 28.4 mmoll (20.0-26.0); METHB 0.4 % (0.0-1.5); O2(CT) 14.1 mL/dL (15.0-23.0); SAMPLE BLOOD; SAO2 87.6 % (95.0-100.0); THB 12.8 g/dL (11.5-17.4); pH(98.6) 7.34 (7.35-7.45)
[2018-10-18 17:47] LABS: PCO2(98.6) 60 mmHg (35-45); PO2(98.6) 47 mmHg (60-100)
[2018-10-18 17:48] LABS: ALLEN TEST YES; MODALITY CANNULA; O2HB 78.7 % (95.0-99.0)
[2018-10-18] MEDS ORDERED: ZOFRAN IV PRN (17:58)
[2018-10-18] MEDS ORDERED: DUONEB (A & A) INH PRN (17:58)
[2018-10-18] MEDS ORDERED: APRESOLINE IV PRN (18:01)
--- NOTE | 2018-10-18 18:45 | HISTORY AND PHYSICAL ---
CHIEF COMPLAINT: Shortness of breath. HISTORY OF PRESENT ILLNESS: The patient is an elderly appearing gentleman who presented to the hospital with increased cough, congestion, work of breathing, and increased shortness of breath. Denies any fevers or chills. States he is still smoking. He has had labored breathing. At this time, he is not taking any medication for his breathing. ALLERGIES: No known drug allergies. MEDICATIONS: 1. Enalapril 5 daily. 2. Gabapentin 100 t.i.d. REVIEW OF SYSTEMS: The patient notes he has had increased work of breathing, increased cough, congestion, shortness of breath. He has been hyperventilating at times. Notes that it gets worse with any exertion. Denies any fevers or chills. Denies any production to his cough. Denies headaches, blurred vision, change in vision. Denies any focalized numbness, tingling, or weakness in his extremities. Denies any dysuria, frequency, urgency. PAST MEDICAL HISTORY: Significant for: 1. Blood clots in the knees. 2. Known coronary artery disease. 3. Hypertension. 4. Hyperlipidemia. 5. History of [place]. 6. He has COPD. 7. He has a history of seizures. 8. He has had stroke with speech and vision deficits. 9. He has had orthopedic surgery on his right knee and left foot. FAMILY HISTORY: Noncontributory. SOCIAL HISTORY: The patient continues to smoke. Does not drink. Denies illicit substances. PHYSICAL EXAMINATION: VITAL SIGNS: Temperature 98 degrees, pulse 108, respiratory rate 24, BP elevated at 179/105. GENERAL: Patient is awake, alert. He is in mild respiratory distress. HEENT: Normocephalic. NECK: Supple. CARDIOVASCULAR: Tachycardia. No murmurs. CHEST: Decreased breath sounds. Minimal wheezing bilaterally. ABDOMEN: Soft, nondistended. EXTREMITIES: Moves all extremities. NEUROLOGIC: No changes. LABS: CBC and CMP essentially normal. PCO2 was elevated at 60. ASSESSMENT: 1. Asthma exacerbation. 2. Chronic obstructive pulmonary disease with exacerbation. 3. Hypertension, with poor home control. 4. Chronic tobacco abuse. 5. History of coronary artery disease. 6. Hyperlipidemia, although not currently on cholesterol medication. PLAN: We will admit patient to the hospital, place him on breathing treatments, oxygen, steroids, antibiotics, and will follow. cc: Rock Adams MD
[2018-10-18] MEDS: DUONEB (A & A) INH SCH ×2 (21:10→23:20)
[2018-10-18] MEDS: LEVAQUIN 500 MG/D5W 500 MG/100 ML IVPB IV SCH (22:30)
[2018-10-18] MEDS: SOLU-MEDROL IV SCH (22:30)
[2018-10-19] MEDS: DUONEB (A & A) INH SCH ×6 (03:16→23:08)
[2018-10-19] MEDS: SOLU-MEDROL IV SCH ×3 (06:01→23:33)
[2018-10-19 06:57] LABS: HEMATOCRIT 40.6 % (42.0-52.0); MCH 27.8 PG (27-31); MCV 86.9 FL (81-99); MPV 10.1 FL (7.4-10.4); RBC 4.67 XMIL (4.7-6.1); RDW 14.9 % (11.5-14.5); WBC 3.89 X1000 (4.8-10.8)
[2018-10-19 07:45] LABS: AGAP 7; ALBUMIN 3.4 g/dL (3.5-5.0); ALKALINE PHOSPHATASE 73 U/L (32-122); BUN 7 mg/dL (8-22); CHLORIDE 100 mmol/L (98-107); COSMO 279; CREATININE 0.5 mg/dL (0.7-1.2); ESTIMATED GFR > 60; GLUCOSE 133 mg/dL (70-104); GOT 17 U/L (10-34); GPT 8 U/L (10-44); MAGNESIUM 1.7 mg/dL (1.5-2.7); SODIUM 140 mmol/L (136-145); TCO2 34 mmol/L (25-35); TOTAL BILIRUBIN < 0.15 mg/dL (0.20-1.00); TOTAL PROTEIN 6.1 g/dL (6.3-8.3)
[2018-10-19] MEDS: NEURONTIN PO SCH ×3 (09:23→17:20)
[2018-10-19] MEDS: VASOTEC PO SCH (09:23)
[2018-10-19 11:32] LABS: BE 7.6 mmoll (-3.0-3.0); BLOOD TYPE ARTERIAL; HCO3-(ACT) 30.5 mmoll (20.0-26.0); METHB 0.1 % (0.0-1.5); O2(CT) 15.5 mL/dL (15.0-23.0); SAMPLE BLOOD; SAO2 88.1 % (95.0-100.0)
[2018-10-19 11:39] LABS: ALLEN TEST NO; MODALITY CANNULA; O2HB 84.9 % (95.0-99.0); PCO2(98.6) 55 mmHg (35-45); PO2(98.6) 47 mmHg (60-100)
--- NOTE | 2018-10-19 15:28 | Diag Imaging Result Doc PS360 ---
EXAM: CT HEAD W/O CONTRAST HISTORY: AMS TECHNIQUE: CT head without contrast COMPARISON: 08/04/2018 FINDINGS: No parenchymal hemorrhage. No epidural or subdural hematoma. No subarachnoid hemorrhage. Encephalomalacia in the posterior right temporal lobe and both occipital lobes. Old infarct involving the left cerebellum as well. No mass identified on this noncontrasted exam. No hydrocephalus. No sinus opacification. IMPRESSION: 1.No hemorrhage 2.Old bilateral infarcts This exam was performed using automated exposure control, adjustment of mA or kV according to patient size, and/or use of iterative reconstruction technique. Electronically signed by Pb Dove 10/19/2018 3:26 PM
--- NOTE | 2018-10-19 16:09 | PROGRESS NOTE ---
DATE: 10/19/2018 SUBJECTIVE: Patient notes he is still short of breath, still coughing, congestion but although thinks he is feeling a little bit better. OBJECTIVE: Temperature 98, pulse 84, respiratory rate 18, BP 129/76.General: Patient is currently in minimal respiratory distress. HEENT: Normocephalic. Neck: Supple. Cardiovascular: Regular rhythm and rate. Chest: Decreased but equal breath sounds bilaterally. Faint wheezing throughout. No crackles. Extremities: Moves all extremities. Neurologic: No focal changes. Abdomen: Soft, nondistended, nontender. Extremities: Moves all extremities, no edema. Neuro: No focal changes. ASSESSMENT: 1. Chronic obstructive pulmonary disease with exacerbation. 2. Hypertension with poor home control, much improved. 3. Chronic tobacco abuse. 4. Known coronary artery disease. 5. Hyperlipidemia. PLAN: Continue patient in hospital antibiotics, IV fluids and we will follow. cc: Rock Adams MD
[2018-10-19 17:29] LABS: URINE SOURCE VOIDED
[2018-10-19 17:31] LABS: BILIRUBIN URINE NEGATIVE (NEGATIVE); BLOOD URINE NEGATIVE (NEGATIVE); GLUCOSE URINE NEGATIVE (NEGATIVE); KETONE URINE NEGATIVE (NEGATIVE); LEUKOCYTES URINE TRACE (NEGATIVE); NITRITE URINE NEGATIVE (NEGATIVE); PH URINE 6.5; PROTEIN URINE NEGATIVE (NEGATIVE); SP GRAVITY URINE 1.015; UROBILINOGEN URINE NORMAL
[2018-10-19 17:32] LABS: CLARITY CLEAR (CLEAR); COLOR YELLOW
[2018-10-19 17:38] LABS: UR AMPHETAMINES QUAL NONE DETECTED (NONE DETECT); UR BARBITUATES QUAL PRESUMPTIVE POSITIVE (NONE DETECT); UR BENZODIAZEPIN QUAL PRESUMPTIVE POSITIVE (NONE DETECT); UR CANNABINOIDS QUAL NONE DETECTED (NONE DETECT); UR COCAINE QUAL NONE DETECTED (NONE DETECT); UR METHADONE QUAL NONE DETECTED (NONE DETECT); UR METHAMPHETAMINE QUAL NONE DETECTED (NONE DETECT); UR OPIATES QUAL NONE DETECTED (NONE DETECT); UR OXYCODONE QUAL NONE DETECTED (NONE DETECT); UR PCP QUAL NONE DETECTED (NONE DETECT); UR PROPOXYPHENE QUAL NONE DETECTED (NONE DETECT); UR TCA QUAL NONE DETECTED (NONE DETECT); URINE BACTERIA NEGATIVE /HFP; URINE CAST NONE SEEN /LPF; URINE CRYSTAL NONE SEEN /HPF; URINE EPITHELIAL CELLS <10 /HPF (<10); URINE RBC <10 /HPF (<10); URINE WBC <10 /HPF (<10); URINE YEAST NONE SEEN /HPF
[2018-10-19] MEDS: TYLENOL WITH CODEINE #3 PO PRN ×2 (17:42→23:33)
--- NOTE | 2018-10-19 18:02 | EKG Report ---
Test Performed on : 10/19/2018 11:51:01 AM Test Reason : left arm tingling, AMS Blood Pressure : / mmHG Vent. Rate : 082 BPM Atrial Rate : 082 BPM P-R Int : 122 ms QRS Dur : 092 ms QT Int : 420 ms P-R-T Axes : 076 071 195 degrees QTc Int : 490 ms Sinus rhythm. with occasional premature ventricular complexes. Possible Inferior infarct (cited on or before 17-AUG-2018) Cannot rule out Anteroseptal infarct (cited on or before 03-JUL-2016) Abnormal ECG When compared with ECG of 18-OCT-2018 15:07, (Unconfirmed) premature ventricular complexes. are now present Questionable change in initial forces of Septal leads Confirmed by Hernandez Dyer MD ([id number]) on 11/04/2018 3:30:35 PM
[2018-10-19] MEDS: LEVAQUIN 500 MG/D5W 500 MG/100 ML IVPB IV SCH (23:33)
[2018-10-20] MEDS ORDERED: ATIVAN PO ONE (01:48)
[2018-10-20] MEDS: TYLENOL PO PRN ×3 (02:04→17:26)
[2018-10-20] MEDS: DUONEB (A & A) INH SCH ×5 (03:12→20:06)
[2018-10-20] MEDS: SOLU-MEDROL IV SCH ×4 (06:12→15:02)
[2018-10-20] MEDS: VASOTEC PO SCH (10:02)
[2018-10-20] MEDS: NEURONTIN PO SCH ×3 (10:02→16:01)
[2018-10-20] MEDS: TYLENOL WITH CODEINE #3 PO PRN ×2 (12:36→21:42)
[2018-10-20] MEDS ORDERED: XANAX PO ONE (15:20)
[2018-10-20] MEDS: PREDNISONE PO SCH ×2 (15:37→23:11)
--- NOTE | 2018-10-20 21:08 | PROGRESS NOTE ---
DATE: 10/20/2018 SUBJECTIVE: The patient has no new complaints. He states he still feels jittery and anxious. He is still having some shortness of breath. Denies any fevers. OBJECTIVE: Temperature 97.8 degrees, pulse 85, respiratory 20, BP 126/55.General: The patient is awake and alert. He is in mild respiratory distress. HEENT: Normocephalic. Neck: Supple. Cardiovascular: Regular rate. Chest: Decreased but equal breath sounds. No wheezing. Abdomen: Soft. Extremities: Moves all extremities. ASSESSMENT: 1. Chronic obstructive pulmonary disease with exacerbation. 2. Hypertension. 3. Chronic tobacco abuse. PLAN: We will change Levaquin to p.o. We will decrease Solu-Medrol. Hopefully if he continues to improve he can be discharged home over the next 1 or 2 days. cc: Rock Adams MD
[2018-10-20] MEDS: LEVAQUIN PO SCH (21:42)
[2018-10-21] MEDS: DUONEB (A & A) INH SCH ×7 (00:22→23:37)
[2018-10-21] MEDS: TYLENOL WITH CODEINE #3 PO PRN ×3 (05:59→16:54)
[2018-10-21] MEDS: PREDNISONE PO SCH (09:05)
[2018-10-21] MEDS: VASOTEC PO SCH (09:05)
[2018-10-21] MEDS: NEURONTIN PO SCH ×3 (09:05→16:54)
[2018-10-21] MEDS: TYLENOL PO PRN (09:26)
[2018-10-21] MEDS: LEVAQUIN PO SCH (21:28)
--- NOTE | 2018-10-21 22:39 | PROGRESS NOTE ---
DATE: 10/21/2018 SUBJECTIVE: Patient notes he is feeling better. Shortness of breath is improved. His cough and congestion have improved. OBJECTIVE: Vital signs: Temperature 99, pulse 85, respiratory rate 18, BP 133/66. General: Patient is in no current respiratory distress. HEENT: Normocephalic. Neck: Supple. Cardiovascular: Regular rate. Chest: Clear nonlabored. Abdomen: Soft, nondistended. Extremities: Moves all extremities. ASSESSMENT: 1. Asthma exacerbation, improved. 2. Adult failure to thrive with generalized weakness. 3. Hypertension. 4. Chronic obstructive pulmonary disease. PLAN: We will continue patient in the hospital. We have changed him over to p.o. prednisone. He has tolerated very well. Physically he is too weak to go home. We are going to look at rehab. cc: Rock Adams MD
[2018-10-22] MEDS: TYLENOL WITH CODEINE #3 PO PRN ×2 (01:42→20:37)
[2018-10-22] MEDS: DUONEB (A & A) INH SCH ×5 (03:32→19:29)
[2018-10-22] MEDS: PREDNISONE PO SCH (08:17)
[2018-10-22] MEDS: VASOTEC PO SCH (08:17)
[2018-10-22] MEDS: NEURONTIN PO SCH ×4 (08:17→20:38)
[2018-10-22] MEDS ORDERED: VENTOLIN HFA INH PRN (17:18)
[2018-10-22] MEDS: ATARAX PO SCH ×2 (17:36→20:41)
--- NOTE | 2018-10-22 19:00 | PROGRESS NOTE ---
DATE: 10/22/2018 SUBJECTIVE: Patient has no new complaints. States he is breathing a little bit better. Denies any fevers or chills. PHYSICAL EXAMINATION: Vital Signs: Temperature 98 degrees, pulse 95, respiratory 18, BP 137/60. General: Patient is awake, currently in no distress. HEENT: Normocephalic. Neck: Supple. Cardiovascular: Regular rate. Chest: Clear, nonlabored. Abdomen: Soft, nondistended. Extremities: Moves all extremities. ASSESSMENT AND PLAN: 1. Cardiac dysrhythmia. We had actually planned on discharging him to rehab today; however, he had a several beat run of ventricular tachycardia. Therefore, it is felt it is best to watch him for another day or so on telemetry and to follow. 2. Hypertension. 3. Chronic obstructive pulmonary disease with exacerbation. 4. Adult failure to thrive. cc: Rock Adams MD
[2018-10-22] MEDS: LEVAQUIN PO SCH (20:37)
[2018-10-22] MEDS: KEPPRA PO SCH (20:37)
[2018-10-22] MEDS: ZYPREXA PO SCH (20:37)
[2018-10-23] MEDS: ATARAX PO SCH ×3 (04:21→20:40)
[2018-10-23] MEDS: DUONEB (A & A) INH SCH ×7 (05:11→23:12)
[2018-10-23] MEDS: PREDNISONE PO SCH (09:10)
[2018-10-23] MEDS: VASOTEC PO SCH (09:10)
[2018-10-23] MEDS: KEPPRA PO SCH ×2 (09:10→20:40)
[2018-10-23] MEDS: NEURONTIN PO SCH ×2 (09:10→20:40)
--- NOTE | 2018-10-23 10:10 | PROGRESS NOTE ---
DATE: 10/23/2018 SUBJECTIVE: Patient appears to be somewhat sleepy but does not appear to be in any acute distress. OBJECTIVE: Vital Signs: Temperature 98.2 degrees, pulse 85 per minute, respiratory rate 18 per minute, blood pressure 113/58, pulse oximetry 95% on room air. General: Patient is awake but kind of sleepy. He does not appear to be in any acute distress. Cardiovascular System: First and second heart sounds are audible without any murmurs, rubs or gallops. Respiratory System: Bilateral lung air entry is good without any rales or rhonchi. Gastrointestinal system: Abdomen is soft and nontender. Normal bowel sounds are present. DIAGNOSTIC DATA: No recent diagnostic data is available and previous labs were done on 10/27/2018. The patient was reportedly having nonsustained ventricular tachycardia events during the previous 24 hours. IMPRESSION: 1. Cardiac dysrhythmia. 2. Hypertension. 3. Chronic obstructive pulmonary disease. PLAN: I am going to obtain labs including electrolytes and renal function for evaluation. I am also going to discontinue levofloxacin because of possible side effects of dysrhythmia. Rest of the medications will be continued. The patient can probably be able to go home in the next 24 to 48 hours if remains stable. cc: Conner Marquis MD
[2018-10-23 10:20] LABS: EOS# 0.21 X1000 (0.0-0.7); EOS% 1.8 % (0.0-10.0); HEMATOCRIT 39.7 % (42.0-52.0); IMM GRAN# 0.02 X1000 (0.0-0.04); IMM GRAN% 0.2 % (0.0-0.5); LYMPH# 1.58 X1000 (1.2-3.4); LYMPH% 13.3 % (20.5-51.1); MCH 27.1 PG (27-31); MCHC 30.2 g/dL (33-37); MCV 89.8 FL (81-99); MONO# 1.21 X1000 (0.11-0.59); MONO% 10.2 % (1.7-9.3); MPV 9.8 FL (7.4-10.4); NEUT# 8.85 X1000 (1.4-6.5); NEUT% 74.5 % (42.2-75.2); PLT 284 X1000 (130-400); RBC 4.42 XMIL (4.7-6.1); RDW 15.6 % (11.5-14.5); WBC 11.87 X1000 (4.8-10.8)
[2018-10-23 10:44] LABS: AGAP 6; BUN 7 mg/dL (8-22); CALCIUM 8.5 mg/dL (8.8-10.2); CHLORIDE 100 mmol/L (98-107); COSMO 283; CREATININE 0.5 mg/dL (0.7-1.2); ESTIMATED GFR > 60; GLUCOSE 95 mg/dL (70-104); POTASSIUM 3.7 mmol/L (3.5-5.1); SODIUM 143 mmol/L (136-145); TCO2 37 mmol/L (25-35)
[2018-10-23] MEDS: TYLENOL WITH CODEINE #3 PO PRN (20:39)
[2018-10-23] MEDS: ZYPREXA PO SCH (20:40)
[2018-10-24] MEDS: DUONEB (A & A) INH SCH ×4 (03:13→15:09)
[2018-10-24] MEDS: ATARAX PO SCH ×2 (05:18→15:37)
[2018-10-24] MEDS ORDERED: MAGNESIUM SULFATE 1 GM/D5W 1 GM/100 ML IVPB IV ONE (10:00)
[2018-10-24] MEDS: NEURONTIN PO SCH (10:16)
[2018-10-24] MEDS: KEPPRA PO SCH (10:17)
[2018-10-24] MEDS: VASOTEC PO SCH (10:17)
[2018-10-24] MEDS: PREDNISONE PO SCH (10:17)
[2018-10-24 14:30] VITALS: BP 138/58
--- NOTE | 2018-10-24 15:44 | DISCHARGE SUMMARY ---
ADMISSION DATE: 10/18/2018 DISCHARGE DATE: 10/24/2018 DISCHARGE DIAGNOSIS: 1. Acute chronic obstructive pulmonary disease exacerbation that has now resolved. 2. Hypertension. 3. Coronary artery disease that has been stable. 4. Dyslipidemia. 5. Chronic tobacco abuse with medical noncompliance. HOSPITAL COURSE: Mr. Cardoza is a 48-year-old gentleman who came to the hospital with cough and chest congestion along with dyspnea. He was admitted to the hospital and was treated with systemic corticosteroids along with broad-spectrum antibiotics and bronchodilators. His condition has since improved and he is feeling better. Since his condition is improved, we are going to discharge him home today. DISCHARGE MEDICATIONS: 1. Albuterol inhaler 2 puffs q.4 hours as needed for wheezing and shortness of breath. 2. Enalapril 5 mg orally once daily. 3. Gabapentin 300 mg orally twice daily. 4. Hydroxyzine 25 mg every 8 hours as needed. 5. Keppra 500 mg orally twice daily. 6. Olanzapine 10 mg orally once daily at bedtime. FOLLOWUP: He will follow up with his PCP in approximately 1 week. CONDITION: Stable. DISPOSITION: Home. cc: Conner Marquis MD
== END 2018-10-24 15:36 | DRG 191 ==
LOC: P.ED 14:52 → SUATTDRO 19:39 → P.MEDSURG 19:39
PROVIDERS: ADMIT Family Medicine; ATTEND Internal Medicine